=== PATIENT | female | born 1940 | race African-American/Black ===

== ENCOUNTER → 2017-02-14 | Outpatient (CLI) | payer MEDICARE, OTHER ==
[~2017-02-14] MED LIST: ASPI325T8 PO; DICY10CA53 PO; DILT240C66 PO; FLUT1DIS5 IH; HYDR12.53 PO; IOHEXOL 180 MG/ML 10 ML VIAL. ONE; LISI40TA PO; METF500T4 PO; METO25TA4 PO; PROAIR HFA8.5 GM INH; RANI300T3 PO; TIOT18CA IH; methylPREDNISolone ACETATE 40 MG/ML VIAL. ONE; methylPREDNISolone ACETATE 80 MG/ML VIAL. ONE
--- NOTE | 2017-02-14 23:13 | PAIN ---
DATE OF SERVICE: 02/14/2017 INITIAL CONSULTATION PAIN CLINIC CHIEF COMPLAINT: Left low back pain. HISTORY OF PRESENT ILLNESS: The patient is a 76-year-old female who presents with history of pain in the left low back for about 20+ years, worse over the past 6 months or so. The patient reports no recent injury or action that she is aware of, but she did have an injury 20 years ago when she was sewing doing some repetitive leaning forward and backwards to her left side and caused a significant pain in the low back on the left side radiating to the mid upper back on the left as well. The patient reports it comes and goes overtime. She is very active and increases the pain with activity when she is sewing or doing other activities. The patient reports she gave up sewing after this, but now has the pain intermittently as a sharp shooting pain, also a dull aching on the left side radiating to the left flank and sometimes anteriorly to the lower rib cage, but mostly in the low back and the posterior hips. The patient reports no radiation to lower extremities specifically, but occasionally will have some tingling sensations in the anterior thigh, mostly in the low back, however. The patient reports it is in mid back. The patient reports it awakens her from sleep at night, not every night. It does not affect her bowel or bladder control, but does affect her ability to walk when it is most painful. The patient reports it is better with sitting or lying down, but sometimes, she cannot predict when it is going to occur. The patient reports she has had a previous physical therapy, chiropractic treatment exercises, also epidural injections all of which have helped the pain in the past. She has tried oxycodone that did not help and just made her sick. The patient did have a recent MRI scan of the lumbar spine showing multilevel degenerative disk disease and facet arthropathy with spinal stenosis, most severe at the L2-L3 levels with broad-based disk bulge at L3-L4 levels with disk bulge and ligamentum flavum hypertrophy, L4-L5 with disk bulge and severe canal stenosis, right greater than left, foraminal encroachment in L5-S1 with minimal disk bulge. The patient reports her disability rating from 0-10, 10 being the worst, as a 10 with family home responsibilities, recreation, social activity and occupation, 6 with self-care and 8 with life support activities. The patient reports no loss of motor function, no significant fatigability of lower extremities. PAST MEDICAL HISTORY: Significant for hearing loss, cataracts, diabetes type 2, shortness of breath, home oxygen, COPD, hypoxemia, hypertension, atrial dysrhythmias, coronary artery disease, gastroesophageal reflux, arthritis. PREVIOUS SURGERY: Include coronary artery bypass grafting 03/2012, previous hysterectomy, cholecystectomy, bilateral cataract extractions. CURRENT MEDICATIONS: Include metformin, lisinopril, metoprolol, atorvastatin, Zantac, Bentyl, ProAir, Cartia, Spiriva, Advair, hydrochlorothiazide. ALLERGIES: THE PATIENT IS ALLERGIC TO CODEINE. SOCIAL HISTORY: The patient does not smoke, does not drink alcohol, is , lives locally in [place], [place]. FAMILY HISTORY: Significant for diabetes, hypertension and heart disease. REVIEW OF SYSTEMS: The patient's review of systems is positive for those items mentioned in history of present illness. All systems reviewed and otherwise negative. It is complete, full and well documented on the patient's chart. PHYSICAL EXAMINATION: VITAL SIGNS: The patient's blood pressure is 166/97, pulse 92, respirations 16, temperature 98.2 degrees Fahrenheit. Height is 5 feet 4 inches, weight is 114 pounds. GENERAL: The patient is awake, alert, oriented, appropriate, very pleasant demeanor. HEENT: Head shows normocephalic, atraumatic. Extraocular movements are intact and symmetrical. Oral cavity, mucous membranes are moist and pink. Dentition is intact. NECK: Shows anterior throat supple without palpable lymphadenopathy noted. Swallow reflex is symmetrical. CHEST: Shows normal on inspection. Breath sounds are clear to auscultation bilaterally. HEART: Shows S1 and S2 clear. ABDOMEN: Soft, nontender, nondistended. No palpable organomegaly is noted. No rebound or guarding demonstrated. BACK: The patient's back shows spine grossly midline. Normal appearing thoracic kyphosis and lumbar lordotic curvature. No previous bruises, lesions, rashes or scars noted. With palpation in the lumbar paraspinous muscle shows some moderate tenderness in the middle and lower aspects of the thoracic paraspinous musculature throughout the upper, middle and lower distribution of paraspinous muscles in the lumbar distribution on the left, but not the right appears symmetrical on inspection, but with palpation is much more firm on the left than the right, but without specific trigger points or radiation of pain. No tenderness over the spinous processes themselves, sacrum or sacroiliac regions. The patient shows good rotational motion of the lumbar and thoracic spines both greater than 10 degrees, right and left lateral as well as extension greater than 10 degrees, forward flexion 45 degrees without exacerbation of pain. The patient's lower extremities showed deep tendon reflexes at 2+ in the patellar and 1+ tendocalcaneus tendons, are equal. Motor exam is strong with approximately 4 on a scale of 5, but equal and symmetrical bilaterally, dorsiflexion, extension, quadriceps and hamstring flexion. Peripheral pulses are 1+ posterior tibial and dorsalis pedis pulses. No peripheral edema is noted. No clubbing, no cyanosis. Lower extremities are warm and dry to touch, equal in color and appearance. Straight leg raise noted to be negative for reproduction of radicular symptoms bilaterally. Gaenslen's and Logan's maneuvers are negative bilaterally as well. The patient is able to stand, stand on her toes, unable to walk without assistive devices and has a normal-appearing gait without any favoring the right or left lower extremities. IMPRESSION: 1. This is a 76-year-old female with a long history of mid and low back pain, left sided. 2. MRI scan of lumbar spine as noted. 3. History of arthritis. 4. Hypertension. 5. Diabetes. 6. Chronic obstructive pulmonary disease with oxygen dependency. PLAN: Options were discussed with the patient including conservative medical management, physical therapy, interventional techniques. She would like to pursue interventional techniques. We discussed a lumbar epidural steroid injection using description as well as anatomical models to describe the procedure. Risks were then discussed including, but not limited to bleeding, infection, possibility of epidural hematoma, subsequent neurologic compromise, dural punctures, headaches, spinal cord and/or nerve damage, side effects of steroid medication and poor results regarding pain control. The patient understands and wishes to proceed. The patient will return to clinic in approximately 2 weeks for followup, was counseled on return appointment, activity level and side effects to be aware of. DIAGNOSIS: Lumbar radiculopathy with lumbar spinal stenosis, lumbar degenerative disease. PROCEDURE: Lumbar epidural steroid injection in translaminar approach at the L2-L3 level using C-arm fluoroscopic guidance under sterile prep and drape using local anesthetic. MEDICATIONS INJECTED: Depo-Medrol 120 mg plus 10 mL of preservative-free normal saline and 2 mL of Isovue for contrast. CONDITION AT DISCHARGE: Stable. The patient tolerated procedure well, had no complications. [facility] HERCULES MD DR: MARIAN/monroe JOB#: [id number] / [id number]
== END | disposition home or self-care (01) ==
LOC: PNCL 10:25
PROVIDERS: ATTEND Anesthesiology
DX: M51.16 Intervertebral disc disorders with radiculopathy, lumbar region (principal); M48.06 Spinal stenosis, lumbar region; H91.90 Unspecified hearing loss, unspecified ear; E11.9 Type 2 diabetes mellitus without complications; J44.9 Chronic obstructive pulmonary disease, unspecified; I10 Essential (primary) hypertension; I25.10 Atherosclerotic heart disease of native coronary artery without angina pectoris; M19.90 Unspecified osteoarthritis, unspecified site; K21.9 Gastro-esophageal reflux disease without esophagitis; Z90.49 Acquired absence of other specified parts of digestive tract; Z83.3 Family history of diabetes mellitus; Z82.49 Family history of ischemic heart disease and other diseases of the circulatory system; Z90.710 Acquired absence of both cervix and uterus; Z88.6 Allergy status to analgesic agent
CPT/HCPCS: 62323; J1030; J1040

== ENCOUNTER → 2018-09-29 | Outpatient (CLI) | payer MEDICARE, OTHER ==
[~2018-09-29] MED LIST changes: +ALBU2.5V8 INH; -HYDR12.53 PO; +HYDR12.575 PO; +LISI-130 PO; -LISI40TA PO; +METF500T16 PO; -METF500T4 PO; -PROAIR HFA8.5 GM INH
--- NOTE | 2018-09-30 02:28 | PAIN ---
DATE OF SERVICE: 09/29/2018 PROGRESS NOTE FOR PAIN CLINIC DIAGNOSES: Lumbar radiculopathy with lumbar degenerative disk disease and lumbar spinal stenosis. HISTORY OF PRESENT ILLNESS: The patient is a 78-year-old female who returns for followup status post lumbar epidural steroid injection x 1, last seen on 02/14/2017. The patient did very well with near 100% improvement for about 19 months. The patient reports the pain began to return now just over about the past 6 days, increasing in the low back in the left side with some radiation into the left lateral anterior and medial thigh, into the groin as well on the left side, worse with walking, standing, changing positions. The patient reports it has been awakening her from sleep again. Initially, she was walking greater distances, doing work activities, household activities, doing everything she wanted comfortably, traveling without difficulty and sleeping well at night as well, but again over the past 6 days or so, the pain has begun to return. The patient reports it is on the left side, only just as it was at last visit. The patient reports it is burning, becoming more severe, cramping, shooting, traveling and stabbing at times as well as dull and aching in the low back. The patient reports it is a 10 on a scale of 10 at its worst, 8 on average, 5 at its least and is a 5 today. The patient reports no new motor or sensory deficits, no new bowel or bladder incontinence or other complaints. PHYSICAL EXAMINATION: VITAL SIGNS: The patient's blood pressure is 140/80, pulse 53, respirations 24, temperature is 98.1 degrees Fahrenheit. Height is 5 feet 4 inches, weight is 118 pounds. GENERAL: The patient is awake, alert, oriented, appropriate, very pleasant demeanor. HEENT: Head is normocephalic, atraumatic. Extraocular movements are intact and symmetrical. Oral cavity: Mucous membranes moist and pink. Dentition is intact. The patient is wearing nasal cannula oxygen. NECK: Shows anterior throat supple without palpable lymphadenopathy noted. Swallow reflex symmetrical. CHEST: Shows normal with inspection. Breath sounds are clear to auscultation bilaterally, but distant. No rales, rhonchi or wheezes auscultated. HEART: Shows S1, S2 clear. No murmurs auscultated. ABDOMEN: Soft, flat, nontender, nondistended. No palpable organomegaly is noted. No rebound or guarding demonstrated. BACK: Shows spine grossly in the midline. Slight exaggeration of thoracic kyphosis, minor flattening of lumbar lordotic curvature. Lumbar paraspinous muscle shows symmetrical on inspection, on palpation shows some moderate tenderness diffusely in the paraspinous musculature bilaterally, but only diffusely in the middle and lower distributions. The patient has full rotational motion of lumbar spine both laterally greater than 10 degrees right and left as well as extension greater than 10 degrees, forward flexion 45 degrees without significant pain or difficulty. EXTREMITIES: The patient's lower extremities show deep tendon reflexes at 2+ in the patellar and tendo calcaneus tendons are 1+. Motor exam is approximately 4 on a scale of 5, but equal and symmetrical with dorsiflexion, extension, quadriceps and hamstring flexion bilaterally. Peripheral pulses are 1+ posterior tibia. No peripheral edema is noted bilaterally. Options were discussed with the patient. The patient's old chart was reviewed as her current medication regimen updated. Current review of systems updated today as well and we will proceed with a lumbar epidural steroid injection as first in this series with fluoroscopic guidance. Risks were again discussed including, but not limited to, bleeding, infection, possibility of epidural hematoma, subsequent neurological compromise, dural puncture, headaches, spinal cord and/or nerve damage, side effects of steroid medication and poor results regarding pain control. The patient understands and wished to proceed. The patient will return to the clinic in approximately 2 weeks for followup. She was counseled as to return appointment, activity level and side effects to be aware of. DIAGNOSIS: Lumbar radiculopathy with lumbar degenerative disk disease, lumbar spinal stenosis. PROCEDURE: Lumbar epidural steroid injection, translaminar approach at L2-L3 level using C-arm fluoroscopic guidance under sterile prep and drape using local anesthetic. MEDICATION INJECTED: A total of 120 mg Depo-Medrol plus 10 mL of preservative-free normal saline and 2 mL of Isovue for contrast. CONDITION AT DISCHARGE: Stable. The patient tolerated the procedure well, had no complications. [facility] HERCULES MD DR: MARIAN/monroe JOB#: [id number] / [id number]
== END | disposition home or self-care (01) ==
LOC: PNCL 11:20
PROVIDERS: ATTEND Anesthesiology
DX: M51.16 Intervertebral disc disorders with radiculopathy, lumbar region (principal); M48.061 Spinal stenosis, lumbar region without neurogenic claudication; Z88.5 Allergy status to narcotic agent
CPT/HCPCS: 62323; J1030; J1040; Q9965

== ENCOUNTER → 2018-11-26 | Outpatient (CLI) | payer MEDICARE, OTHER ==
--- NOTE | 2018-11-27 05:23 | PAIN ---
DATE OF SERVICE: 11/26/2018 PROGRESS NOTE FOR PAIN CLINIC DIAGNOSES: Lumbar radiculopathy with lumbar degenerative disk disease, lumbar spinal stenosis. HISTORY OF PRESENT ILLNESS: The patient is a 78-year-old female who returns for followup status post lumbar epidural steroid injection, most recently on 09/29/2018. The patient did very well with this with about 100% improvement until the last 2 days the pain began to return, significantly in the low back on the left side, into the left anterior thigh. The patient reports it is worse with walking, standing, change in positions, has been awakening her from sleep occasionally, but generally better with sitting or lying down. It does not awaken her every night, over the past few days though has been more bothersome. The patient reports it is in the low back, it is severe, becoming unbearable, burning and sharp in the back itself and into the left leg. The patient reports it is 10 on a scale of 10 at its worst, 10 on average, 2 at its least and is 10 today. The patient reports no new motor or sensory deficits, no new bowel or bladder incontinence or other complaints. PHYSICAL EXAMINATION: VITAL SIGNS: The patient's blood pressure is 180/100, pulse 116, respirations 18, temperature 98.2 degrees Fahrenheit, height is 5 feet 5 inches, weighs 118 pounds. GENERAL: The patient is awake, alert, oriented, appropriate, very pleasant demeanor. HEENT: Shows normocephalic, atraumatic. Extraocular movements intact and symmetrical. Oral cavity: Mucous membranes moist and pink. Dentition is intact. NECK: Shows anterior throat supple without palpable lymphadenopathy noted. Swallow reflex symmetrical. CHEST: Shows normal on inspection. Breath sounds clear to auscultation bilaterally. HEART: Shows S1, S2 clear. ABDOMEN: Soft, nontender, nondistended. No palpable organomegaly is noted. No rebound or guarding demonstrated. BACK: Shows spine grossly in the midline, normal-appearing cervical lordotic curvature, slight increase in thoracic kyphotic curvature, some minor flattening of lumbar lordotic curvature. Lumbar paraspinous muscle shows symmetrical on inspection; palpation shows some moderate tenderness diffusely throughout the upper, middle and lower distribution of paraspinous muscles, which are very firm and tight, but without specific trigger points, without radiation. The patient has good rotational motion of the lumbar spine both laterally as well as extension and flexion without difficulty. EXTREMITIES: The patient's lower extremities show deep tendon reflexes 2+ in the patellar, 1+ tendo-calcaneus tendons. Motor exam is approximately 4 on a scale of 5, but equal and symmetrical with dorsiflexion, extension, quadriceps and hamstring flexion. Peripheral pulses are 1+ posterior tibia. No peripheral edema is noted. Options were discussed with the patient. The patient's old chart was reviewed as was her current medication regimen updated. Current review of systems updated today as well. We will proceed with a second in the series of lumbar epidural steroid injection today with fluoroscopic guidance. Risks were again discussed including, but not limited to bleeding, infection, possibility of epidural hematoma and subsequent neurological compromise, dural puncture, headaches, spinal cord and/or nerve damage, side effects of steroid medication and poor results regarding pain control. The patient understands and wished to proceed. The patient will return to the clinic in approximately 2 weeks for followup, was counseled as to return appointment, activity level and side effects to be aware of. DIAGNOSIS: Lumbar radiculopathy with lumbar degenerative disk disease, lumbar spinal stenosis. PROCEDURE: Lumbar epidural steroid injection, translaminar approach at L2-L3 level using C-arm fluoroscopic guidance under sterile prep and drape using local anesthetic. MEDICATION INJECTED: A total of 120 mg Depo-Medrol plus 10 mL of preservative-free normal saline and 2 mL of contrast. CONDITION AT DISCHARGE: Stable. The patient tolerated procedure well, had no complications. [facility] HERCULES MD DR: MARIAN/monroe JOB#: [id number] / [id number]
== END ==
LOC: PNCL 11:06
PROVIDERS: ATTEND Anesthesiology
DX: M51.16 Intervertebral disc disorders with radiculopathy, lumbar region (principal); M48.061 Spinal stenosis, lumbar region without neurogenic claudication; M54.5 Low back pain; M79.652 Pain in left thigh
CPT/HCPCS: 62323; J1030; J1040; Q9965

== ENCOUNTER → 2019-02-16 | Outpatient (CLI) | payer MEDICARE, OTHER ==
--- NOTE | 2019-02-16 22:21 | PAIN ---
DATE OF SERVICE: 02/16/2019 PROGRESS NOTE FOR PAIN CLINIC DIAGNOSES: Lumbar radiculopathy with lumbar degenerative disk disease and lumbar spinal stenosis. HISTORY OF PRESENT ILLNESS: The patient is a 78-year-old female who returns for followup status post lumbar epidural steroid injection x 2, most recently on 11/26/2018. The patient did very well with 90% improvement. Back is still doing very well, but her legs are having some pain in the thighs, mostly in the anterior medial aspect of thighs, but some in the posterior also. The patient reports it is worse with walking, standing, changing positions, better with sitting or lying down, does not awaken her from sleep at night. The patient reports her pain is at 9 on a scale of 10 at its worst over the past week, 6 on average, 3 at its least and is at 3 today. The patient reports it is a shooting pain in the thighs, sometimes burning in the back, worse on the left side. The patient reports no new motor or sensory deficits, no new bowel or bladder incontinence. PHYSICAL EXAMINATION: VITAL SIGNS: The patient's blood pressure is 151/82, pulse 79, respirations are 18, temperature 97.9 degrees Fahrenheit, height is 5 feet 4 inches and weight is 117 pounds. GENERAL: The patient is awake, alert, oriented, appropriate, very pleasant demeanor. HEENT: Shows normocephalic, atraumatic. The patient is wearing eyeglasses. Extraocular movements are intact and symmetrical. Also wearing nasal cannula oxygen. Oral cavity: Mucous membranes moist and pink. NECK: Shows anterior throat is supple without palpable lymphadenopathy noted. Swallow reflex is symmetrical. CHEST: Shows normal on inspection. Breath sounds are clear to auscultation bilaterally. HEART: Shows S1, S2 clear. No murmurs are auscultated. ABDOMEN: Soft, nontender, nondistended. No palpable organomegaly is noted. No rebound or guarding demonstrated. BACK: Shows spine grossly in the midline, normal appearing cervical lordotic curvature as well as thoracic kyphotic curvature and lumbar lordotic curvature. Lumbar paraspinous muscle shows symmetrical on inspection; on palpation shows some moderate tenderness diffusely bilaterally, but only diffusely without significant radiation. EXTREMITIES: The patient's lower extremities showed deep tendon reflexes at 2+ in the patellar, 1+ tendo-calcaneus tendons. Motor exam is approximately 4 on a scale of 5, but equal and symmetrical with dorsiflexion, extension, quadriceps and hamstring flexion bilaterally. Options were discussed with the patient. The patient's old chart was reviewed as her current medication regimen updated. Current review of systems was updated today as well and we will proceed with lumbar epidural steroid injection, third in a series today, with fluoroscopic guidance. Risks were again discussed including, but not limited to bleeding, infection, possibility of epidural hematoma, subsequent neurological compromise, dural puncture, headaches, spinal cord and/or nerve damage, side effects of steroid medication and poor results regarding pain control. The patient understands and wished to proceed. The patient will return to clinic in approximately 2 weeks for followup. She was counseled on return appointment, activity level and side effects to be aware of. DIAGNOSES: Lumbar radiculopathy with lumbar degenerative disk disease and lumbar spinal stenosis. PROCEDURES: Lumbar epidural steroid injection, translaminar approach at L2-L3 level using C-arm fluoroscopic guidance under sterile prep and drape using local anesthetic. MEDICATION INJECTED: A total of 120 mg Depo-Medrol plus 10 mL of preservative-free normal saline and 2 mL of contrast. CONDITION AT DISCHARGE: Stable. The patient tolerated the procedure well and had no complications. [facility] HERCULES MD DR: MARIAN/monroe JOB#: [id number] / [id number]
== END ==
LOC: PNCL 09:09
PROVIDERS: ATTEND Anesthesiology
DX: M51.16 Intervertebral disc disorders with radiculopathy, lumbar region (principal); M48.061 Spinal stenosis, lumbar region without neurogenic claudication
CPT/HCPCS: 62323; J1030; J1040; Q9965

== ENCOUNTER → 2019-04-16 | Outpatient (CLI) | payer MEDICARE, OTHER ==
[~2019-04-16] MED LIST changes: -IOHEXOL 180 MG/ML 10 ML VIAL. ONE
--- NOTE | 2019-04-16 11:07 | PAIN ---
DATE OF SERVICE: 04/16/2019 PROGRESS NOTE FOR PAIN CLINIC DIAGNOSES: Lumbar radiculopathy with lumbar degenerative disk disease and lumbar spinal stenosis. HISTORY OF PRESENT ILLNESS: The patient is a 78-year-old female who returns for followup status post lumbar epidural steroid injections, most recently 02/16/2019. The patient did very well about 100% improvement for about the first month. The patient reports the pain is returning now slowly over the past few weeks in the low back, bilateral lower extremities, mostly in the posterolateral thighs, posterior and anterior thighs, anterior medial thighs and groins, slightly worse on the right than the left, worse with walking, standing, changing positions. Initially, she was increasing her distance walking, doing household activities with greater ease and comfort, sleeping well at night. The patient reports the pain does not awaken her from sleep, sleeps about 7-8 hours a night without significant difficulty. The patient rates her pain as a 9 on a scale of 10 at its worst in the past week, 9 on average, 1 at its least, and is 9 today. The patient reports it is sharp and shooting, radiating in the low back into the lower extremities, slightly more on the right than the left, but present bilaterally. The patient reports no new motor or sensory deficits, no new bowel or bladder incontinence or other complaints. PHYSICAL EXAMINATION: VITAL SIGNS: The patient's blood pressure 161/82, pulse 98, respirations are 18, temperature 98.4 degrees Fahrenheit, height 5 feet 4 inches, weight is 122 pounds. GENERAL: The patient is awake, alert, oriented, appropriate, very pleasant demeanor. HEENT: Shows normocephalic, atraumatic. Extraocular movements are intact and symmetrical. Oral cavity: Mucous membranes moist and pink. Dentition is intact. NECK: Shows anterior throat supple without palpable lymphadenopathy noted. Swallow reflex symmetrical. CHEST: Shows normal on inspection. Breath sounds clear to auscultation bilaterally. HEART: Shows S1, S2 clear. No murmurs auscultated. ABDOMEN: Soft, nontender, nondistended. No palpable organomegaly is noted. No rebound or guarding demonstrated. BACK: Shows spine grossly in the midline. Normal appearing thoracic kyphosis and minor flattening of lumbar lordotic curvature. Lumbar paraspinous shows symmetrical on inspection, on palpation shows some moderate tenderness diffusely bilaterally going diffusely with significant radiation. EXTREMITIES: The patient's lower extremities show deep tendon reflexes 2+ in the patellar, 1+ tendo-calcaneus tendons, are equal. Motor exam is strong with approximately 4 on a scale of 5, but equal and symmetrical dorsiflexion, extension, quadriceps and hamstring flexion. Peripheral pulses are 1+. No peripheral edema is noted bilaterally. PLAN: Options were discussed with the patient. The patient's old chart was reviewed as her current medication regimen updated. Current review of systems updated today as well. We will proceed with a lumbar epidural steroid injection first in a series today with fluoroscopic guidance. Risks were again discussed including, but not limited to bleeding, infection, possibility of epidural hematoma, subsequent neurological compromise, dural puncture, headaches, spinal cord and/or nerve damage, side effects of steroid medication and poor results regarding pain control. The patient understands and wished to proceed. The patient will return to the clinic in approximately 2 weeks for followup. She was counseled as to return appointment, activity level and side effects to be aware of. DIAGNOSES: Lumbar radiculopathy with lumbar degenerative disk disease and lumbar spinal stenosis. PROCEDURE: Lumbar epidural steroid injection, translaminar approach L2-L3 level using C-arm fluoroscopic guidance under sterile prep and drape using local anesthetic. MEDICATION INJECTED: A total of 120 mg of Depo-Medrol plus 10 mL of preservative-free normal saline and 2 mL of contrast. CONDITION AT DISCHARGE: Stable. The patient tolerated the procedure well, had no complications. [facility] HERCULES MD DR: MARIAN/monroe JOB#: [id number] / [id number]
== END ==
LOC: PNCL 10:02
PROVIDERS: ATTEND Anesthesiology
DX: M51.16 Intervertebral disc disorders with radiculopathy, lumbar region (principal); M48.061 Spinal stenosis, lumbar region without neurogenic claudication
CPT/HCPCS: 62323; J1030; J1040

== ENCOUNTER → 2019-06-15 | Outpatient (CLI) | payer MEDICARE, OTHER ==
[~2019-06-15] MED LIST changes: +IOHEXOL 180 MG/ML 10 ML VIAL. ONE
--- NOTE | 2019-06-16 03:35 | PAIN ---
DATE OF SERVICE: 06/15/2019 PROGRESS NOTE FOR PAIN CLINIC DIAGNOSES: Lumbar radiculopathy with lumbar degenerative disk disease, lumbar spinal stenosis. HISTORY OF PRESENT ILLNESS: The patient is a 78-year-old female who returns for followup status post lumbar epidural steroid injection x 1 on 04/16. The patient reports she did very well and made 100% improvement for the first 6 weeks. The pain began to return gradually after that time, but initially, she was walking greater distances, doing household activities with greater ease and comfort, walking, changing positions, sleeping much better at night. It still does not awaken her from sleep at night. The patient reports it is worse when she is now on her feet or standing for more than 15-20 minutes. The patient reports the pain is 10 on a scale of 10 at its worst over the past week, 6 on average, 2 at its least and is a 6 today. The patient reports it is sharp and shooting, becoming more severe in the low back itself, but also in the lower extremities, slightly more on the left than the right. The patient reports no new changes. No new bowel or bladder incontinence or other complaints. PHYSICAL EXAMINATION: VITAL SIGNS: The patient's blood pressure is 173/97, pulse 103, respirations 16, temperature 97.8 degrees Fahrenheit, height is 5 feet 4 inches, weight is 120 pounds. GENERAL: The patient is awake, alert, oriented, appropriate, very pleasant demeanor. HEENT: Shows normocephalic, atraumatic. Extraocular movements are intact and symmetrical. Oral cavity: Mucous membranes moist and pink. Dentition is intact. NECK: Shows anterior throat supple without ____. CHEST: Shows normal on inspection. Breath sounds are clear bilaterally. HEART: Shows S1, S2 clear. Soft, nontender, nondistended. BACK: Shows spine grossly in the midline. Slight exaggeration of thoracic kyphosis. Some minor flattening of lumbar lordotic curvature. Lumbar paraspinous muscle shows symmetrical on inspection, with palpation shows some mild tenderness, but only very diffusely in the upper, middle and lower distribution of paraspinous muscles bilaterally, but are symmetrical without evidence of atrophy or hypertrophy. No radiation of pain. The patient has full rotational motion of the lumbar spine both laterally as well as extension and flexion without significant pain or difficulty. EXTREMITIES: The patient's lower extremities show deep tendon reflexes 2+ in the patellar, 1+ tendo-calcaneus tendons. Motor exam is approximately 4 on a scale of 5, but equal and symmetrical with dorsiflexion, extension, quadriceps and hamstring flexion. Peripheral pulses are 1+ posterior tibia. No peripheral edema bilaterally. Options were discussed with the patient. The patient's old chart was reviewed as her current medication regimen updated. Current review of systems updated today as well. We will proceed with a second in the series lumbar epidural steroid injection today with fluoroscopic guidance. Risks were again discussed including, but not limited to bleeding, infection, possibility of epidural hematoma, subsequent neurological compromise, dural puncture, headaches, spinal cord and/or nerve damage, side effects of steroid medication and poor results regarding pain control. The patient understands and wished to proceed. The patient will return to clinic in approximately 2 weeks for followup. She was counseled on return appointment, activity level and side effects to be aware of. DIAGNOSES: Lumbar radiculopathy with lumbar degenerative disk disease, lumbar spinal stenosis. PROCEDURE: Lumbar epidural steroid injection, translaminar approach, at L2-L3 level using C-arm fluoroscopic guidance under sterile prep and drape using local anesthetic. MEDICATION INJECTED: A total of 120 mg Depo-Medrol plus 10 mL of preservative-free normal saline and 2 mL of contrast. CONDITION AT DISCHARGE: Stable. The patient tolerated the procedure well, had no complications. [facility] HERCULES MD DR: MARIAN/monroe JOB#: [id number] / [id number]
== END ==
LOC: PNCL 09:32
PROVIDERS: ATTEND Anesthesiology
DX: M51.16 Intervertebral disc disorders with radiculopathy, lumbar region (principal); M48.061 Spinal stenosis, lumbar region without neurogenic claudication
CPT/HCPCS: 62323; J1030; J1040; Q9965

== ENCOUNTER → 2019-08-10 | Outpatient (CLI) | payer MEDICARE, OTHER ==
[~2019-08-10] MED LIST changes: +DILT120T4 PO; +DRON400T PO
--- NOTE | 2019-08-10 12:06 | PAIN ---
DATE OF SERVICE: 08/10/2019 PROGRESS NOTE FOR PAIN CLINIC DIAGNOSES: Lumbar radiculopathy with lumbar degenerative disk disease, lumbar spinal stenosis. HISTORY OF PRESENT ILLNESS: The patient is a 78-year-old female who returns for followup status post lumbar epidural steroid injection x2, last seen 06/15/2019. The patient did very well with near 100% improvement after the last injection. The patient reports pain is returning down the low back, slightly more on the left leg than the right, but present bilaterally in the lateral anterior thigh, into the groin on the left side at times as well. The patient reports it is a 10 on a scale of 10 at its worst over the past week, 9 on average 1 at its least and is a 9 today. The patient reports it is sharp and shooting. It is in the low back and into the legs, again moreso on the left, radiating but across the low back as well. The patient reports no new motor or sensory deficits. Initially, she was doing much better with distance walking, doing household activities, traveling with greater ease and comfort, still better with sitting or lying down is sleeping well at night, does not awaken her from sleep. She sleeps about 8 hours at a time. The patient reports it is worse with walking and changing positions, especially getting up from a seated position. PHYSICAL EXAMINATION: VITAL SIGNS: The patient's blood pressure 141/92, pulse 83, respirations 20, temperature 97.5 degrees Fahrenheit, height is 5 feet 4 inches, weight is 121 pounds. GENERAL: The patient is awake, alert, oriented, appropriate, very pleasant demeanor. HEENT: Head shows normocephalic, atraumatic. Extraocular movements are intact and symmetrical. Oral cavity: Mucous membranes moist and pink. Dentition is intact. NECK: Shows anterior throat supple without palpable lymphadenopathy noted. Swallow reflex symmetrical. CHEST: Shows normal on inspection. Breath sounds are clear bilaterally. HEART: Shows S1, S2 clear. No murmurs auscultated. ABDOMEN: Soft, nontender, nondistended. No palpable organomegaly is noted. No rebound or guarding demonstrated. BACK: Shows spine grossly in the midline. Normal appearing thoracic kyphosis, some minor flattening of lumbar lordotic curvature. Lumbar paraspinous muscle shows symmetrical on inspection, with palpation shows some moderate tenderness diffusely bilaterally going diffusely without significant radiation. EXTREMITIES: The patient's lower extremities show deep tendon reflexes at 2+ in the patellar, 1+ tendo-calcaneus tendons are equal. Motor exam is strong with 4 on a scale of 5, but equal and symmetrical dorsiflexion, extension, quadriceps and hamstring flexion. Peripheral pulses are 1+ posterior tibia. No peripheral edema is noted bilaterally. Options were discussed with the patient. The patient's old chart was reviewed as her current medication regimen updated. Current review of systems updated today as well. We will proceed with a third in a series of lumbar epidural steroid injection today with fluoroscopic guidance. The patient would like to proceed with a third lumbar epidural steroid injection today. Risks were again discussed including, but not limited to bleeding, infection, possibility of epidural hematoma, subsequent neurological compromise, dural puncture, headaches, spinal cord and/or nerve damage, side effects of steroid medication and poor results regarding pain control. The patient understands and wished to proceed. The patient will return to clinic in approximately 2 weeks for followup. She was counseled on return appointment, activity level and side effects to be aware of. DIAGNOSIS: Lumbar radiculopathy with lumbar degenerative disk disease, lumbar spinal stenosis. PROCEDURE: Lumbar epidural steroid injection, translaminar approach at L2-L3 level using C-arm fluoroscopic guidance under sterile prep and drape using local anesthetic. MEDICATION INJECTED: A total of 120 mg Depo-Medrol plus 10 mL preservative-free normal saline and 2 mL of contrast. CONDITION AT DISCHARGE: Stable. The patient tolerated procedure well, had no complications. [facility] HERCULES MD DR: MARIAN/monroe JOB#: [id number] / [id number]
== END | disposition home or self-care (01) ==
LOC: PNCL 10:38
PROVIDERS: ATTEND Anesthesiology
DX: M51.16 Intervertebral disc disorders with radiculopathy, lumbar region (principal); M48.061 Spinal stenosis, lumbar region without neurogenic claudication; Z98.890 Other specified postprocedural states; Z88.6 Allergy status to analgesic agent
CPT/HCPCS: 62323; J1030; J1040; Q9965

== ENCOUNTER → 2019-10-19 | Outpatient (CLI) | payer MEDICARE, OTHER ==
[~2019-10-19] MED LIST changes: +ASPI-630 PO
--- NOTE | 2019-10-19 11:41 | PAIN ---
DATE OF SERVICE: 10/19/2019 PROGRESS NOTE FOR PAIN CLINIC DIAGNOSES: Lumbar radiculopathy with lumbar degenerative disk disease and lumbar spinal stenosis. HISTORY OF PRESENT ILLNESS: The patient is a 79-year-old female who returns for followup status post lumbar epidural steroid injections x 3, most recently 08/10/2019. Patient did very well with about a 100% improvement for the first few months. The patient reports the pain has returned now over the past few weeks and it has been in the low back, bilateral lower extremities, posterior gluteus, posterior thighs, anterior thighs, medial thighs, but mostly across the low back. The patient reports it is a 10 on a scale of 10 at its worst over the past week, 8 on average, 2 at its least and is a 2 today, worse with walking, standing, changing positions, better with sitting or lying down. The patient has been sleeping much better, doing walking distances with greater ease and activity with household activities with greater ease and comfort and traveling with greater ease as well. The patient reports it is aching pain that can be sharp into the posterior gluteus and into the legs and radiating. The patient reports no new motor or sensory deficits, no new bowel or bladder incontinence. It does not awaken her from sleep at night. PHYSICAL EXAMINATION: VITAL SIGNS: The patient's blood pressure 148/89, pulse 74, respirations are 16, temperature 98.0 degrees Fahrenheit, height is 5 feet 4 inches, weight is 116 pounds. GENERAL: The patient is awake, alert, oriented, appropriate, very pleasant demeanor. HEENT: Exam shows normocephalic, atraumatic. Extraocular movements are intact and symmetrical. Oral cavity shows mucous membranes moist and pink. Dentition is intact. NECK: Shows anterior throat supple without palpable lymphadenopathy noted. Swallow reflex symmetrical. CHEST: Shows normal on inspection. Breath sounds are clear bilaterally. HEART: Shows S1, S2 clear. ABDOMEN: Soft, nontender, nondistended. BACK: Shows spine grossly in the midline. Normal appearing thoracic kyphosis and lumbar lordotic curvature. Lumbar paraspinous muscle shows symmetrical on inspection, on palpation shows some moderate tenderness diffusely in the low lumbar distribution only, but without significant radiation. EXTREMITIES: The patient's lower extremities show deep tendon reflexes at 2+ in the patellar, 1+ tendo-calcaneus tendons. Motor exam is 4 on a scale of 5, but equal and symmetrical dorsiflexion, extension, quadriceps and hamstring flexion. Peripheral pulses are 1+. No peripheral edema is noted bilaterally. Options were discussed with the patient. The patient's old chart was reviewed as her current medication regimen updated. Current review of systems updated today as well and we will proceed with a first in this series of lumbar epidural steroid injection today with fluoroscopic guidance. Risks were again discussed including, but not limited to bleeding, infection, possibility of epidural hematoma, subsequent neurological compromise, dural puncture, headaches, spinal cord and/or nerve damage, side effects of steroid medication and poor results regarding pain control. The patient understands and wished to proceed. The patient will return to clinic in approximately 2 weeks for followup. She was counseled on return appointment, activity level and side effects to be aware of. DIAGNOSIS: Lumbar radiculopathy with lumbar degenerative disk disease and lumbar spinal stenosis. PROCEDURE: Lumbar epidural steroid injection, translaminar approach to L2-L3 level using C-arm fluoroscopic guidance under sterile prep and drape using local anesthetic. MEDICATION INJECTED: A total of 120 mg Depo-Medrol plus 10 mL of preservative-free normal saline and 2 mL of contrast. CONDITION AT DISCHARGE: Stable. The patient tolerated procedure well, had no complications. [facility] HERCULES MD DR: MARIAN/monroe JOB#: [id number] / [id number]
== END ==
LOC: PNCL 10:18
PROVIDERS: ATTEND Anesthesiology
DX: M51.16 Intervertebral disc disorders with radiculopathy, lumbar region (principal); M48.061 Spinal stenosis, lumbar region without neurogenic claudication
CPT/HCPCS: 62323; J1030; J1040; Q9965

== ENCOUNTER → 2019-11-26 | Outpatient (CLI) | payer MEDICARE, OTHER ==
--- NOTE | 2019-11-26 12:52 | PAIN ---
DATE OF SERVICE: 11/26/2019 PROGRESS NOTE FOR PAIN CLINIC DIAGNOSES: Lumbar radiculopathy with lumbar degenerative disk disease, lumbar spinal stenosis. HISTORY OF PRESENT ILLNESS: The patient is a 79-year-old female who returns for followup status post lumbar epidural steroid injection x 1, on 10/19/2019. The patient reports she did very well initially, but not as much relief as she has had in the past, and usually about 100-90% at the worse. The patient reports the pain has only been about 50% improved, but still pain in the low back, bilateral lower extremities, mostly in the anterior thighs, anterior medial thighs and in the low back itself. The patient reports it is worse with walking, standing, better with sitting or lying down, does not awaken her from sleep generally. No new motor or sensory deficits, no bowel or bladder incontinence. Describes the pain as severe, radiating, aching in the back and shooting in the legs. The patient reports it is a 9 on a scale of 10 at its worst over the past week, 7 on average, 1 at its least and is a 1 today. The patient reports no new motor or sensory deficits, no bowel or bladder incontinence or other complaints. PHYSICAL EXAMINATION: VITAL SIGNS: The patient's blood pressure 161/96, pulse 85, respirations 18, temperature 98.6 degrees Fahrenheit, height is 5 feet 4 inches, weight is 118 pounds. GENERAL: The patient is awake, alert, oriented, appropriate, very pleasant demeanor. HEENT: Shows normocephalic, atraumatic. Extraocular movements are intact and symmetrical. Oral cavity shows mucous membranes moist and pink. Dentition is intact. NECK: Shows anterior throat supple without palpable lymphadenopathy noted. Swallow reflex symmetrical. CHEST: Shows normal on inspection. Breath sounds are clear to auscultation bilaterally. HEART: Shows S1, S2 clear. No murmurs auscultated. ABDOMEN: Soft, nontender, nondistended. BACK: Shows spine grossly in the midline. Normal appearing thoracic kyphosis and minor flattening of lumbar lordotic curvature. Lumbar paraspinous muscle shows symmetrical on inspection, with palpation shows very mild tenderness throughout the upper, middle and lower distribution of paraspinous muscles, but diffusely and without asymmetry or trigger points or radiation. The patient has good rotational motion of lumbar spine, both laterally greater than 10 degrees right and left as well as extension greater than 10 degrees, forward flexion 45 degrees without significant pain reported. EXTREMITIES: Lower extremities show deep tendon reflexes 2+ in the patellar, 1+ tendo-calcaneus tendons. Motor exam is strong with approximately 4 on a scale of 5 and equal and symmetrical with dorsiflexion, extension, quadriceps and hamstring flexion. Peripheral pulses are 1+. No peripheral edema is noted bilaterally. Options were discussed with the patient. The patient's old chart was reviewed as her current medication regimen updated. Current review of systems updated today as well. We will proceed with a second in the series of lumbar epidural steroid injection today with fluoroscopic guidance. Risks were again discussed including, but not limited to bleeding, infection, possibility of epidural hematoma, subsequent neurological compromise, dural puncture, headaches, spinal cord and/or nerve damage, side effects of steroid medication and poor results regarding pain control. The patient understands and wished to proceed. The patient will return to clinic in approximately 2 weeks for followup. She was counseled on return appointment, activity level and side effects to be aware of. DIAGNOSES: Lumbar radiculopathy with lumbar degenerative disk disease, lumbar spinal stenosis. PROCEDURE: Lumbar epidural steroid injection, translaminar approach at L2-L3 level using C-arm fluoroscopic guidance under sterile prep and drape using local anesthetic. MEDICATION INJECTED: A total of 120 mg Depo-Medrol plus 10 mL of preservative-free normal saline and 2 mL of contrast. CONDITION AT DISCHARGE: Stable. The patient tolerated procedure well, had no complications. [place] HERCULES MD DR: MARIAN/monroe JOB#: [id number] / [id number]
== END ==
LOC: PNCL 09:10
PROVIDERS: ATTEND Anesthesiology
DX: M51.16 Intervertebral disc disorders with radiculopathy, lumbar region (principal); M48.061 Spinal stenosis, lumbar region without neurogenic claudication
CPT/HCPCS: 62323; J1030; J1040; Q9965

== ENCOUNTER → 2020-03-03 | Outpatient (CLI) | payer BC, OTHER ==
--- NOTE | 2020-03-03 10:59 | PDOC ---
Progress Note - Pain Clinic Date of Service: DOS: DATE: 03/03/20 TIME: 10:54 Diagnosis: Dx: Lumbar radiculopathy with lumbar degenerative disease and lumbar spinal stenosis History or Present Illness: HPI: 79-year-old female returns follow-up status post lumbar epidurals injection x2. Patient reports that 100% improvement for the first 2 months following the injection which was November 26, 2019. Patient ports now the pain is returning in the low back and the bilateral lower extremities right equal to left essentially worse with walking standing changing positions, stooping or bending patient ports better with sitting or laying down but does awaken her from sleep occasionally at night but not every night patient reports the pain is radiating stabbing shooting in the low back semi-tight in low back as well as becoming more cramping and dull in the back with radiating pain to the lower extremities. Patient rates her pain as a 9 on scale 10 is worse over the past week 8 on average to its least as an 8 today. Reports no new motor or sensory deficits no new bowel or bladder incontinence or other complaints. Physical Exam: VS: Blood pressure is 140/83 pulse 77 respirations are 18 temperature 98.1 F height is 5 feet 4 inches weight is 116 pounds PE: PHYSICAL EXAMINATION: GENERAL: The patient is awake, alert, oriented, appropriate, very pleasant demeanor HEENT: Shows normocephalic, atraumatic. Extraocular movements are intact and symmetrical. Oral cavity: Mucous membranes moist and pink. NECK: Shows anterior throat supple without palpable lymphadenopathy noted. Swallow reflex symmetrical. CHEST: Shows normal on inspection. Patient wearing nasal cannula oxygen. Breath sounds are clear bilaterally, distant but clear without rales rhonchi or wheezes auscultated. HEART: Shows S1, S2 clear. No murmurs auscultated. ABDOMEN: Soft, nontender, nondistended. No palpable organomegaly is noted. No rebound or guarding demonstrated. BACK: Shows spine grossly in the midline. Normal-appearing cervical lordotic curvature. There is slightly increased thoracic kyphosis, some minor flattening of the lumbar lordotic curvature. Lumbar paraspinous muscles show symmetrical on inspection, on palpation shows some moderate tenderness diffusely throughout the upper, middle and lower distribution of the paraspinous muscles bilaterally and also into the lower thoracic paraspinous musculature, firm and tender, but without specific trigger points, without radiation of pain. The patient has good rotational motion of the lumbar spine, both laterally as well as extension and flexion without significant difficulty. No tenderness over the spinous processes, sacrum or sacroiliac regions. EXTREMITIES: Lower extremities show deep tendon reflexes 2+ in the patellar and tendo calcaneus tendons. Motor exam is 4 on a scale of 5 with right dorsiflexion, extension, quadriceps and hamstring flexion and 4/5 on the left. Peripheral pulses are 1+ posterior tibial. No peripheral edema is noted bilaterally. Lower extremities are warm and dry to touch, equal in color and appearance. SKIN: Shows warm and dry, good turgor. No edema. No sores, rashes or bruising throughout. Procedure: Procedure: Options were discussed with the patient. Patient's old chart was reviewed as her current medication regimen updated current review of systems updated today as well. We will proceed with a third in the series lumbar epidural straight injection today with fluoroscopic guidance. Risks were discussed including but not limited to: Bleeding, infection, possibility of epidural hematoma and subsequent neurological compromise, dural puncture, headaches, spinal cord and/or nerve damage, side effects of steroid medication, and poor results regarding pain control. Patient understands wished to proceed. Patient return to clinic in approximately 2 weeks for follow-up was counseled as to return appointment activity level and side effects to be aware. Medication Injected: Med Injected: Procedure is lumbar epidural steroid injection under local anesthetic using sterile prep and drape at the L2-3 level using C-arm fluoroscopic guidance in both AP and lateral views medications injected is 120 mg Depo-Medrol + and mL preservative-free normal saline and 2 mL contrast- condition at discharge is stable patient tolerated procedure well had no complications. Condition at Discharge: Condition at Discharge: Patient discharged stable patient tolerated procedure well had no complications. PARIS HERCULES MD Mar 03, 2020 10:59
== END | disposition home or self-care (01) ==
LOC: PNCL 09:53
PROVIDERS: ATTEND Anesthesiology
DX: M51.16 Intervertebral disc disorders with radiculopathy, lumbar region (principal); M48.061 Spinal stenosis, lumbar region without neurogenic claudication; I10 Essential (primary) hypertension; E11.9 Type 2 diabetes mellitus without complications; J44.9 Chronic obstructive pulmonary disease, unspecified; Z79.84 Long term (current) use of oral hypoglycemic drugs; Z88.5 Allergy status to narcotic agent; Z79.82 Long term (current) use of aspirin; Z79.899 Other long term (current) drug therapy; Z83.3 Family history of diabetes mellitus
CPT/HCPCS: 62323; J1030; J1040; Q9965

== ENCOUNTER → 2020-04-21 | Outpatient (CLI) | payer BC, OTHER ==
--- NOTE | 2020-04-21 11:53 | PDOC ---
Progress Note - Pain Clinic Date of Service: DOS: DATE: 04/21/20 TIME: 11:50 Diagnosis: Dx: Lumbar radiculopathy with lumbar degenerative disc disease and lumbar spinal stenosis History or Present Illness: HPI: 79-year-old female returns for follow-up status post lumbar injections x3 most recently March 03, 2020 patient very well about 75% improvement patient reports the pain now is only in the low back and left side as it was previously but less radiating to the lower extremity only occasionally patient reports he was doing much better initially with distance walking doing household activities try with greater ease and comfort still using her walker when she is ambulating. Patient reports is a 10 on scale 10 is worse over the past week 10 on average 0 its least is a 10 today patient which is burning radiating severe in the left side posterior lateral thigh anterior thigh medial thigh groin and sometimes in the anterior thigh but the left side the low back significantly. Patient noys has been waking from sleep about every 5-6 hours initially she was doing much better it does not awaken her from sleep but now is. Patient reports no bowel or bladder incontinence or other complaints. Physical Exam: VS: Blood pressure is 125/71 pulse 84 respirations 16 temperature 98.3 F height is 5 feet 4 inches weight is 113 pounds PE: PHYSICAL EXAMINATION: GENERAL: The patient is awake, alert, oriented, appropriate, very pleasant demeanor HEENT: Shows normocephalic, atraumatic. Extraocular movements are intact and symmetrical. NECK: Shows anterior throat supple without palpable lymphadenopathy noted. Swallow reflex symmetrical. CHEST: Shows normal on inspection. Breath sounds are clear bilaterally no rhonchi or wheezes. HEART: Shows S1, S2 clear. No murmurs auscultated. ABDOMEN: Soft, nontender, nondistended. No palpable organomegaly is noted. No rebound or guarding demonstrated. BACK: Shows spine grossly in the midline. Normal-appearing cervical lordotic curvature. There is slightly increased thoracic kyphosis, some minor flattening of the lumbar lordotic curvature. Lumbar paraspinous muscles show symmetrical on inspection, on palpation shows some moderate tenderness diffusely throughout the upper, middle and lower distribution of the paraspinous muscles, but without specific trigger points, without radiation of pain. The patient has good rotat ional motion of the lumbar spine, both laterally as well as extension and flexion without significant difficulty. No tenderness over the spinous processes, sacrum or sacroiliac regions. EXTREMITIES: Lower extremities show deep tendon reflexes 2+ in the patellar and tendo calcaneus tendons. Motor exam is 4 on a scale of 5 with right dorsiflexion, extension, quadriceps and hamstring flexion and 4/5 on the left. Peripheral pulses are 1+ posterior tibial. No peripheral edema is noted bilaterally. Lower extremities are warm and dry to touch, equal in color and appearance. SKIN: Shows warm and dry, good turgor. No edema. No sores, rashes or bruising throughout. Procedure: Procedure: Options were discussed with the patient. Patient chart was reviewed as her current medication regimen updated current review of systems updated today as well. We will proceed with a first in the series lumbar epidural steroid injection today with fluoroscopic guidance. Risks were discussed including but not limited to: Bleeding, infection, possibility of epidural hematoma and subsequent neurological compromise, dural puncture, headaches, spinal cord and/or nerve damage, side effects of steroid medication, and poor results regarding pain control. Patient understands wished to proceed. Patient will return to the clinic in approximately 2 weeks for follow-up was counseled as to return appointment activity level and side effects to be aware of. Medication Injected: Med Injected: Procedure is lumbar epidural steroid injection under local anesthetic using sterile prep and drape at the L2-3 level using C-arm fluoroscopic guidance in both AP and lateral views medications injected is 120 mg Depo-Medrol + 10 mL preservative-free normal saline and 2 mL contrast- condition at discharge is stable patient tolerated procedure well had no complications. Condition at Discharge: Condition at Discharge: Condition at discharge stable patient tolerated procedure well and had no complications. PARIS HERCULES MD Apr 21, 2020 11:53
== END ==
LOC: PNCL 10:35
PROVIDERS: ATTEND Anesthesiology
DX: M51.16 Intervertebral disc disorders with radiculopathy, lumbar region (principal); M48.061 Spinal stenosis, lumbar region without neurogenic claudication; I10 Essential (primary) hypertension; E11.9 Type 2 diabetes mellitus without complications; Z88.5 Allergy status to narcotic agent; Z79.82 Long term (current) use of aspirin; Z79.899 Other long term (current) drug therapy; Z79.84 Long term (current) use of oral hypoglycemic drugs; Z83.3 Family history of diabetes mellitus
CPT/HCPCS: 62323; J1030; J1040; Q9965